=== PATIENT | female | born 1995 | race Caucasian/White ===

== ENCOUNTER → 2016-07-01 | Outpatient (CLI) | payer OTHER ==
[~2016-07-01] MED LIST: ABL10 PO; AMPH20CA3 PO; AMPH30CA3 PO; OXYC1TAB3 PO
--- NOTE | 2016-07-01 17:52 | DIAGNOSTIC IMAGING REPORT ---
SCOLIOSIS 2 VIEW (AP LAT) CLINICAL HISTORY: Scoliosis. COMPARISON STUDY: No previous studies for comparison. FINDINGS: When measuring from the superior endplate of T6 through the inferior endplate of T9, there is 5 degrees of dextroscoliosis. When measuring from the inferior endplate of T10 through the inferior endplate of L2, there is 6 degrees of levoscoliosis. When measuring from the inferior endplate of L2 through the inferior endplate of L5, there is 5 degrees of dextroscoliosis. There may be a transitional vertebra at the lumbosacral junction with ribs at the L1 level. Alignment on lateral projection is anatomic. IMPRESSION: Mild S-shaped scoliosis of the thoracolumbar spine, as described above. Electronically signed by: Khalif Jackson M.D. 07/01/2016 5:51 PM Dictated Date/Time: 07/01/2016 5:47 PM
== END | disposition home or self-care (01) ==
LOC: C.RAD 16:52
PROVIDERS: ATTEND Physician Assistant
DX: M41.20 Other idiopathic scoliosis, site unspecified (principal)

== ENCOUNTER 2016-12-15 17:16 | Emergency (ER) | payer OTHER ==
[~2016-12-15] VITALS: Ht 160 cm; Wt 71.8 kg
[~2016-12-15 17:16] MED LIST changes: -AMPH30CA3 PO; -OXYC1TAB3 PO
[2016-12-15 17:22] VITALS: Ht 160 cm; Wt 71.8 kg
[2016-12-15] MEDS ORDERED: KETOROLAC TROMETHAMINE 30 MG/ML VIAL IV STA (17:40)
[2016-12-15] MEDS ORDERED: SODIUM CHLORIDE 0.9% 1000ML 1,000 ML IV STA (17:40)
[2016-12-15] MEDS ORDERED: SODIUM CHLORIDE 0.9% 1000ML 1,000 ML IV ONE (17:40)
[2016-12-15 17:52] LABS: BASO % 0.4 %; BASO ABS # 0.03 K/uL (0-0.2); COMPLETE YES; EOS % 0.6 %; HEMATOCRIT 42.4 % (37-47); IG% 0.1 %; LYMPH % 42.2 %; LYMPH ABS # 3.02 K/uL (1.2-3.4); MEAN CELL VOLUME 87.1 fL (80-100); MEAN CORPUSCULAR HEMOGLOBIN 28.3 pg (25-34); MEAN CORPUSCULAR HGB CONC 32.5 g/dl (32-36); MEAN PLATELET VOLUME 9.9 fL (7.4-10.4); MONO % 4.1 %; NEUT % 52.6 %; PLATELET COUNT 276 K/uL (130-400); RED BLOOD COUNT 4.87 M/uL (4.2-5.4); WHITE BLOOD COUNT 7.15 K/uL (4.8-10.8)
[2016-12-15 17:56] LABS: URINE APPEARANCE CLEAR (CLEAR); URINE BILIRUBIN NEG (NEG); URINE COLOR YELLOW; URINE EPITHELIAL CELL AUTO 20-30 /lpf (0-5); URINE NITRITE NEG (NEG); URINE SPECIFIC GRAVITY 1.022 (1.000-1.030); UROBILINOGEN NEG (NEG)
[2016-12-15 18:02] LABS: MANUAL MICROSCOPIC REQUIRED? NO; REVIEW REQ? NO
[2016-12-15] MEDS ORDERED: AMPH30CA3 PO (18:07)
[2016-12-15 18:10] LABS: BUN/CREATININE RATIO 9.2 (10-20); CALCIUM 8.7 mg/dl (8.5-10.1); CREATININE 0.85 mg/dl (0.60-1.20); POTASSIUM 3.5 mmol/L (3.5-5.1)
[2016-12-15 18:16] LABS: PREG INTERNAL NEGATIVE QC NEG CLEAR BACKGROUND; PREG INTERNAL POSITIVE QC POS CONTROL LINE
--- NOTE | 2016-12-15 19:07 | DIAGNOSTIC IMAGING REPORT ---
PELVIC COMPLETE NON OB, TRANSVAG-FEMALE PELVIS CLINICAL HISTORY: 21 years-old Female presenting with eval for cyst, ovarian pathology, right lower quadrant pain, abnormal uterine bleeding. TECHNIQUE: Real-time grayscale and color and spectral Doppler ultrasound imaging of the pelvis was performed first using a transabdominal probe and subsequently transvaginal for better characterization. COMPARISON: 03/29/2016. FINDINGS: Uterus: Contains a hyperechogenic focus subjacent to the endometrium with twinkling artifact on color Doppler suggesting calcification. Anteverted. The uterus measures 9.0 x 3.6 x 4.2 cm. Endometrial stripe measures 4 mm in thickness. Endometrium normal-appearing. Cervix normal. Right adnexa: Right ovary contains a hypoechoic, avascular septated lesion measuring 3.3 x 3.1 x 3.4 cm. Homogeneous low level echoes are noted amidst few thin septations. Right ovary measures 4.3 x 3.4 x 4.3 cm. Normal color Doppler flow and arterial and venous waveforms within the ovarian parenchyma. Left adnexa: Left ovary normal. Left ovary measures 3.1 x 1.2 x 2.3 cm. Normal color Doppler flow and arterial and venous waveforms within the ovarian parenchyma. Other: Trace free fluid, likely physiologic. IMPRESSION: 1. Right ovary contains a 3.4 cm lesion that could represent a hemorrhagic cyst or endometrioma. Septations within the otherwise cystic lesion suggests a hemorrhagic cyst, although the presence of homogeneous low level echoes could suggest an endometrioma. Follow-up ultrasound in 6-8 weeks could be obtained to confirm resolution, which would suggest a hemorrhagic cyst. Electronically signed by: Lopez Orellana M.D. 12/15/2016 7:06 PM Dictated Date/Time: 12/15/2016 7:02 PM
[2016-12-15] MEDS ORDERED: ONDANSETRON INJ 2 MG/ML 2 ML VIAL IV STA (19:16)
[2016-12-15] MEDS ORDERED: MoRPHine SULFATE 4 MG/ML 1 ML CARP\\VIAL IV STA (19:16)
[2016-12-15] MEDS ORDERED: OXYC1TAB3 PO (19:48)
--- NOTE | 2016-12-15 19:56 | EMERGENCY ROOM VISIT NOTE ---
History Report prepared by Yovany: Ezequiel Copeland Under the Supervision of: Dr. Karan Reece M.D. First contact with patient: 17:33 Chief Complaint: ABDOMINAL PAIN Stated Complaint: STOMACH PAIN History of Present Illness The patient is a 21 year old female who presents to the Emergency Room with complaints of persistent lower abdominal pain beginning a few days ago. She states that her pain began on her right side a week ago, but the pain is currently worse on the left side. She notes that she has been experiencing some vaginal bleeding for the past four days. The patient is sexually active. She is not on control. Her LNMP was two weeks ago. The patient denies any recent trauma or injury. She also complains of nausea. She denies any vomiting, fevers , or chills. The patient states that her abdominal pain is worsened with urination, but not worsened with sexual intercourse. She has been twice before. Her most recent was a successful delivery of twins, and her previous resulted in an elected . Source of History: patient Onset: A few days ago Position: abdomen (lower) Timing: other (persistent) Modifying Factors (Worsening): urination Associated Symptoms: + nausea, No fevers, No chills, No vomiting Review of Systems See HPI for pertinent positives & negatives. A total of 10 systems reviewed and were otherwise negative. Past Medical & Surgical Medical Problems: (1) Non-reactive NST (non-stress test) (2) Twin (3) Urinary tract infection Surgical Problems: (1) H/O wisdom tooth extraction (2) S/P tonsillectomy Old medical records were reviewed. Nurse's notes were reviewed and I agree with. Family History No pertinent family history Social History Smoking Status: Current Every Day Smoker Drug Use: none Housing Status: lives with family Current/Historical Medications Scheduled Amphetamine-Dextroamphetamine 30MG (Adderall Xr 30MG), 30 MG PO QAM Aripiprazole (Abilify), 10 MG PO DAILY Scheduled PRN Oxycodone Immediate Rel Tab (Roxicodone Ir), 1-2 TAB PO Q4H PRN for Severe Pain Allergies Coded Allergies: No Known Allergies (Unverified , none, 12/15/16) Physical Exam Vital Signs Date Time Temp Pulse Resp B/P (MAP) Pulse Ox O2 Delivery O2 Flow Rate FiO2 12/15/16 20:03 36.8 87 20 110/68 99 12/15/16 19:41 87 20 110/68 99 Room Air 12/15/16 17:22 36.8 94 20 114/72 99 Room Air Physical Exam General: Non-ill appearing young female in no acute distress HEENT: Normal cephalic atraumatic. Pupils are equal round and reactive to light. Extraocular movements are intact. Oropharynx is pink with moist mucous membranes. No swelling of the mouth lips or tongue. Neck: Supple with a midline trachea. No meningeal signs or stiffness, no JVD or bruits. No Stridor. Chest: Clear to auscultation bilaterally. No wheezes or rhonchi. No increased work of breathing. Heart: regular rate and rhythm. Abdomen: Soft, nondistended without rebound guarding or rigidity. Mild tenderness to the RLQ. No guarding, rebound or rigidity. Extremities: No cyanosis clubbing or edema. No calf tenderness or assymetry Spine/Back. Non tender to palpation. No CVA tenderness Skin: Good turgor without rashes. Neurologic exam: Cranial nerves two through 12 are intact. Motor and sensation are intact and symmetrical throughout. Medical Decision & Procedures ER Provider Diagnostic Interpretation: Radiology results as stated below per my review and radiologist interpretation: PELVIC COMPLETE NON OB, TRANSVAG-FEMALE PELVIS FINDINGS: Uterus: Contains a hyperechogenic focus subjacent to the endometrium with twinkling artifact on color Doppler suggesting calcification. Anteverted. The uterus measures 9.0 x 3.6 x 4.2 cm. Endometrial stripe measures 4 mm in thickness. Endometrium normal-appearing. Cervix normal. Right adnexa: Right ovary contains a hypoechoic, avascular septated lesion measuring 3.3 x 3.1 x 3.4 cm. Homogeneous low level echoes are noted amidst few thin septations. Right ovary measures 4.3 x 3.4 x 4.3 cm. Normal color Doppler flow and arterial and venous waveforms within the ovarian parenchyma. Left adnexa: Left ovary normal. Left ovary measures 3.1 x 1.2 x 2.3 cm. Normal color Doppler flow and arterial and venous waveforms within the ovarian parenchyma. Other: Trace free fluid, likely physiologic. IMPRESSION: 1. Right ovary contains a 3.4 cm lesion that could represent a hemorrhagic cyst or endometrioma. Septations within the otherwise cystic lesion suggests a hemorrhagic cyst, although the presence of homogeneous low level echoes could suggest an endometrioma. Follow-up ultrasound in 6-8 weeks could be obtained to confirm resolution, which would suggest a hemorrhagic cyst. Electronically signed by: Lopez Orellana M.D. Laboratory Results 12/15/16 17:30 Red Blood Count 4.87, Mean Corpuscular Volume 87.1, Mean Corpuscular Hemoglobin 28.3, Mean Corpuscular Hemoglobin Concent 32.5, Mean Platelet Volume 9.9, Neutrophils (%) (Auto) 52.6, Lymphocytes (%) (Auto) 42.2, Monocytes (%) (Auto) 4.1, Eosinophils (%) (Auto) 0.6, Basophils (%) (Auto) 0.4, Neutrophils # (Auto) 3.76, Lymphocytes # (Auto) 3.02, Monocytes # (Auto) 0.29, Eosinophils # (Auto) 0.04, Basophils # (Auto) 0.03 12/15/16 17:30 Test 12/15/16 17:30 White Blood Count 7.15 K/uL (4.8-10.8) Red Blood Count 4.87 M/uL (4.2-5.4) Hemoglobin 13.8 g/dL (12.0-16.0) Hematocrit 42.4 % (37-47) Mean Corpuscular Volume 87.1 fL (80-100) Mean Corpuscular Hemoglobin 28.3 pg (25-34) Mean Corpuscular Hemoglobin Concent 32.5 g/dl (32-36) Platelet Count 276 K/uL (130-400) Mean Platelet Volume 9.9 fL (7.4-10.4) Neutrophils (%) (Auto) 52.6 % Lymphocytes (%) (Auto) 42.2 % Monocytes (%) (Auto) 4.1 % Eosinophils (%) (Auto) 0.6 % Basophils (%) (Auto) 0.4 % Neutrophils # (Auto) 3.76 K/uL (1.4-6.5) Lymphocytes # (Auto) 3.02 K/uL (1.2-3.4) Monocytes # (Auto) 0.29 K/uL (0.11-0.59) Eosinophils # (Auto) 0.04 K/uL (0-0.5) Basophils # (Auto) 0.03 K/uL (0-0.2) RDW Standard Deviation 45.9 fL (36.4-46.3) RDW Coefficient of Variation 14.4 % (11.5-14.5) Immature Granulocyte % (Auto) 0.1 % Immature Granulocyte # (Auto) 0.01 K/uL (0.00-0.02) Urine Color YELLOW Urine Appearance CLEAR (CLEAR) Urine pH 5.0 (4.5-7.5) Urine Specific [place] 1.022 (1.000-1.030) Urine Protein NEG (NEG) Urine Glucose (UA) NEG (NEG) Urine Ketones NEG (NEG) Urine Occult Blood 3+ (NEG) Urine Nitrite NEG (NEG) Urine Bilirubin NEG (NEG) Urine Urobilinogen NEG (NEG) Urine Leukocyte Esterase NEG (NEG) Urine WBC (Auto) 1-5 /hpf (0-5) Urine RBC (Auto) 10-30 /hpf (0-4) Urine Hyaline Casts (Auto) 1-5 /lpf (0-5) Urine Epithelial Cells (Auto) 20-30 /lpf (0-5) Urine Bacteria (Auto) NEG (NEG) Anion Gap 7.0 mmol/L (3-11) Est Creatinine Clear Calc Drug Dose 99.4 ml/min Estimated GFR () 113.5 Estimated GFR (Non- 97.9 BUN/Creatinine Ratio 9.2 (10-20) Calcium Level 8.7 mg/dl (8.5-10.1) Human Chorionic Gonadotropin, Qual NEG (NEG) Laboratory studies as stated above per my review. Medications Administered Medications (Trade) Dose Ordered Sig/Roseanne Route Start Time Stop Time Status Last Admin Dose Admin Sodium Chloride 1,000 ml @ 999 mls/hr Q1H1M STAT IV 12/15/16 17:40 12/15/16 18:40 DC 12/15/16 17:59 999 MLS/HR Sodium Chloride 1,000 ml @ 200 mls/hr Q5H ONCE IV 12/15/16 17:40 12/15/16 20:23 DC 12/15/16 17:59 200 MLS/HR Ketorolac Tromethamine (Toradol Inj) 30 mg NOW STAT IV 12/15/16 17:40 12/15/16 17:42 DC 12/15/16 18:00 30 MG Morphine Sulfate (MoRPHine SULFATE INJ) 4 mg NOW STAT IV 12/15/16 19:16 12/15/16 19:17 DC 12/15/16 19:35 4 MG Ondansetron HCl (Zofran Inj) 4 mg NOW STAT IV 12/15/16 19:16 12/15/16 19:17 DC 12/15/16 19:34 4 MG Oxycodone HCl (Roxicodone Immediate Rel 5MG Home Pack) 1 [facility] UD ONCE PO 12/15/16 20:00 12/15/16 20:01 DC 12/15/16 19:59 1 [facility] ED Course 1734: Past medical records reviewed. The patient was evaluated in room A12B, and a complete history and physical examination were performed. 1739: Ordered Toradol Inj 30 mg IV, Sodium Chloride 1000 ml @ 200 mls/hr IV, Sodium Chloride 1000 ml @ 999 mls/hr IV. 1911: I reassessed the patient. She feels better. 1915: Ordered Zofran Inj 4 mg IV, Morphine Sulfate 4 mg IV. 1941: Upon reevaluation, the patient is resting comfortably. I discussed the results and treatment plan with her. She verbalized agreement of the treatment plan. The patient was discharged home. 1999: Ordered Roxicodone Immediate Rel 5 mg home pack PO. Medical Decision Differentials include, but are not limited to; ovarian cyst, , ectopic , UTI, kidney stone, and appendicitis. This patient comes in as described above. She was placed in room a 12. She's had right lower quadrant abdominal pain she is moderately tender but has no peritonitis also having vaginal bleeding. IV access established titer was normal saline. She was given Toradol 30 mg IV as well as normal saline. Her urine was negative as well as a serum . She has no white count or fever to suggest infection, she's no acute electrode or metabolic abnormalities, she's had no significant anemia. I did an ultrasound and there is a hemorrhagic cyst on that side. I told her she needs a follow-up close with gynecology and the need to recheck this and likely do another ultrasound make sure there is nothing else going on. She did have some relief with the Toradol but did require 4 mg of morphine and 4 mg Zofran IV. She will primarily use ibuprofen at home. She was given a small prescription for OxyIR for more severe pain and was warned to not take this before drinking, driving, working. She was encouraged to return if : increasing pain, worsening of symptoms, any new problems or concerns. She is happy with plan and discharged to home. Medication Reconcilliation Current Medication List: was personally reviewed by me Blood Pressure Screening Patient's blood pressure: Normal blood pressure Blood pressure disposition: Did not require urgent referral Impression Primary Impression: Hemorrhagic ovarian cyst Additional Impression: RLQ abdominal pain Scribe Attestation The scribe's documentation has been prepared under my direction and personally reviewed by me in its entirety. I confirm that the note above accurately reflects all work, treatment, procedures, and medical decision making performed by me. Departure Information Dispostion Home / Self-Care Prescriptions Oxycodone Immediate Rel Tab (ROXICODONE IR) 5 Mg Tab 1-2 TAB PO Q4H Y for Severe Pain, #10 TAB Prov: Karan Reece M.D. 12/15/16 Referrals Yenifer Encinas D.O. (PCP) Forms HOME CARE DOCUMENTATION FORM, IMPORTANT VISIT INFORMATION Patient Instructions My [facility] Additional Instructions Rest. Drink plenty of fluids. Use ibuprofen 600 mg every 6 hours if needed for pain For breakthrough pain, may use OxyIR 5 mg, one or 2 pills every 4-6 hours as needed OxyIR may make you drowsy and do not take before drinking, driving, working Do not take OxyIR with any other pain medications or alcohol Return if: Increasing pain, fever or chills, worsening symptoms, any new problems or concerns Follow-up with your plant attendant this week for recheck Problem Qualifiers
[2016-12-15] MEDS ORDERED: OXYCODONE IR HOME PACK PO ONE (20:00)
[2016-12-15 20:03] VITALS: BP 110/68; PULSE 87; TEMP 36.8; O2SAT 99
== END 2016-12-15 20:03 | disposition home or self-care (01) ==
LOC: C.EDB 17:17 → C.EDA 20:03
DX: N83.201 Unspecified ovarian cyst, right side (principal); R10.31 Right lower quadrant pain; N93.9 Abnormal uterine and vaginal bleeding, unspecified; F17.200 Nicotine dependence, unspecified, uncomplicated